=== PATIENT | male | born 1985 | race African-American/Black ===

== ENCOUNTER 2020-11-21 02:57 | Emergency (ER) | payer OTHER, MEDICAID ==
[~2020-11-21] VITALS: Ht 177.8 cm; Wt 117.9 kg
[2020-11-21] MEDS ORDERED: IBUPROFEN 800800 MG PO (03:34)
== END 2020-11-21 04:03 | disposition home or self-care (01) ==
LOC: ER 02:57
DX: S90.211A Contusion of right great toe with damage to nail, initial encounter (principal); W22.03XA Walked into furniture, initial encounter; Y93.89 Activity, other specified; Y92.89 Other specified places as the place of occurrence of the external cause; Y99.9 Unspecified external cause status

== ENCOUNTER 2020-12-18 11:48 | Emergency (ER) | payer OTHER, MEDICAID ==
[~2020-12-18] VITALS: Ht 180.3 cm; Wt 122.5 kg
[~2020-12-18 11:48] MED LIST: IBUPROFEN 800800 MG PO
[2020-12-18 12:39] LABS: ABSOLUTE NEUTROPHILS 2.3 thou/uL (1.4-8.2); BASOPHILS 1.3 % (0.0-2.0); EOSINOPHILS 5.9 % (0.0-3.0); LYMPHOCYTES 44.2 % (24.0-44.0); MCH 25.7 pg (26.0-34.0); MCHC 32.3 g/dL (28.0-37.0); MCV 79.4 fL (80.0-100.0); MONOCYTES 11.4 % (1.0-8.0); PLATELET COUNT 253 thou/uL (150-400); POLYS 37.2 % (36.0-66.0); RBC 4.67 mil/uL (4.50-6.00); RDW 19.3 % (10.5-14.5); WBC 6.1 thou/uL (4.0-11.0)
[2020-12-18 12:48] LABS: CALCIUM 8.6 mg/dL (8.5-10.1); CREATININE 0.9 mg/dL (0.7-1.3); POTASSIUM 3.8 mmol/L (3.5-5.1)
[2020-12-18 12:54] LABS: ALBUMIN 3.8 g/dL (3.4-5.0); TOTAL BILIRUBIN 0.2 mg/dL (0.2-1.0); TOTAL PROTEIN 7.8 g/dL (6.4-8.2)
[2020-12-18 13:33] LABS: ANISOCYTOSIS 1+; PLATELET ESTIMATE NORMAL
[2020-12-18] MEDS ORDERED: PROTONIX40 MG PO (14:01)
[2020-12-18 14:21] VITALS: BP 140/86
== END 2020-12-18 14:21 | disposition home or self-care (01) ==
LOC: ER 11:48
PROVIDERS: Emergency Medicine
DX: R10.816 Epigastric abdominal tenderness (principal); K92.1 Melena; R11.2 Nausea with vomiting, unspecified; F17.210 Nicotine dependence, cigarettes, uncomplicated; E66.9 Obesity, unspecified

== ENCOUNTER 2021-05-14 11:21 | Emergency (ER) | payer OTHER, MEDICAID ==
[~2021-05-14] VITALS: Ht 177.8 cm; Wt 117.9 kg
[~2021-05-14 11:21] MED LIST changes: +PROTONIX40 MG PO
[2021-05-14 11:53] LABS: ABSOLUTE NEUTROPHILS 2.1 thou/uL (1.4-8.2); BASOPHILS 1.9 % (0.0-2.0); EOSINOPHILS 2.9 % (0.0-3.0); HEMATOCRIT 41.2 % (42.0-52.0); HEMOGLOBIN 13.4 gm/dL (14.0-18.0); MCH 25.7 pg (26.0-34.0); MCHC 32.5 g/dL (28.0-37.0); MONOCYTES 11.7 % (1.0-8.0); PLATELET COUNT 263 thou/uL (150-400); POLYS 46.5 % (36.0-66.0); RBC 5.22 mil/uL (4.50-6.00); RDW 21.2 % (10.5-14.5); WBC 4.4 thou/uL (4.0-11.0)
[2021-05-14 11:58] LABS: ANION GAP 15 mmol/L (7-16); BUN 9 mg/dL (7-18); CALCIUM 9.3 mg/dL (8.5-10.1); CHLORIDE 103 mmol/L (98-107); CO2 23 mmol/L (21-32); CREATININE 0.9 mg/dL (0.7-1.3); GLUCOSE 110 mg/dL (74-106); POTASSIUM 3.5 mmol/L (3.5-5.1); SODIUM 141 mmol/L (136-145)
[2021-05-14 12:04] LABS: DIRECT BILIRUBIN < 0.1 mg/dL (<0.1-0.2); LIPASE 70 U/L (73-393); SGOT 24 U/L (15-37); SGPT 29 U/L (16-63); TOTAL BILIRUBIN 0.4 mg/dL (0.2-1.0); TOTAL PROTEIN 8.2 g/dL (6.4-8.2)
[2021-05-14] MEDS ORDERED: ONDANSETRON HCL4 M2 PO (13:43)
[2021-05-14] MEDS ORDERED: BENTYL 10 MG CA10 M1 PO (13:43)
[2021-05-14] MEDS ORDERED: CARAFATE 1 GM TA1 G1 PO (13:43)
[2021-05-14 13:47] LABS: ANISOCYTOSIS 1+
[2021-05-14 13:57] VITALS: BP 175/97
== END 2021-05-14 13:58 | disposition home or self-care (01) ==
LOC: ER 11:21
PROVIDERS: Nurse Practitioner
DX: R10.11 Right upper quadrant pain (principal); R11.0 Nausea; F17.210 Nicotine dependence, cigarettes, uncomplicated; Z79.899 Other long term (current) drug therapy

== ENCOUNTER 2021-07-16 09:51 | Emergency (ER) | payer OTHER, MEDICAID ==
[~2021-07-16] VITALS: Ht 180.3 cm; Wt 117.9 kg
[~2021-07-16 09:51] MED LIST changes: +BENTYL 10 MG CA10 M1 PO; +CARAFATE 1 GM TA1 G1 PO; +ONDANSETRON HCL4 M2 PO
[2021-07-16] MEDS ORDERED: PERCOCET 5-3251 EACH PO (11:26)
[2021-07-16 11:38] VITALS: BP 149/90
== END 2021-07-16 11:38 | disposition home or self-care (01) ==
LOC: ER 09:51
DX: S62.396A Other fracture of fifth metacarpal bone, right hand, initial encounter for closed fracture (principal); F17.210 Nicotine dependence, cigarettes, uncomplicated; Z79.899 Other long term (current) drug therapy; W26.8XXA Contact with other sharp object(s), not elsewhere classified, initial encounter; Y93.89 Activity, other specified; Y92.89 Other specified places as the place of occurrence of the external cause; Y99.8 Other external cause status

== ENCOUNTER 2021-07-19 23:51 | Emergency (ER) | payer OTHER, MEDICAID ==
[~2021-07-19] VITALS: Ht 180.3 cm; Wt 120.2 kg
[~2021-07-19 23:51] MED LIST changes: +PERCOCET 5-3251 EACH PO
[2021-07-20] MEDS ORDERED: NOHOMEMEDICATIONS (00:03)
[2021-07-20] MEDS ORDERED: PERCOCET 5-3251 EACH PO (01:41)
[2021-07-20] MEDS ORDERED: IBUPROFEN 800800 MG PO (01:41)
[2021-07-20 01:50] VITALS: BP 119/65
== END 2021-07-20 01:50 | disposition home or self-care (01) ==
LOC: ER 23:51
DX: S62.336D Displaced fracture of neck of fifth metacarpal bone, right hand, subsequent encounter for fracture with routine healing (principal); E11.9 Type 2 diabetes mellitus without complications; F17.210 Nicotine dependence, cigarettes, uncomplicated; Z91.010 Allergy to peanuts; Z79.899 Other long term (current) drug therapy; X58.XXXD Exposure to other specified factors, subsequent encounter